=== PATIENT | female | born 1960 | race Caucasian/White ===

== ENCOUNTER 2022-11-17 16:57 | Inpatient (IN) | payer OTHER ==
[~2022-11-17] VITALS: Ht 162.6 cm; Wt 70.3 kg
[2022-11-17 17:03] VITALS: BP 147/60
--- NOTE | 2022-11-17 17:03 | NUR ---
CORAL ALS TO ER BED 5
[2022-11-17 17:41] LABS: BASOPHILS # (AUTO) 0.1 K/uL (0.00-0.22); BASOPHILS % (AUTO) 1.4 % (0.0-2.0); EOSINOPHILS # (AUTO) 0.1 K/uL (0-0.4); EOSINOPHILS % (AUTO) 2.7 % (0.0-4.0); HEMOGLOBIN 8.8 g/dL (12.0-16.0); LYMPHOCYTES # (AUTO) 0.6 K/uL (2.5-16.5); LYMPHOCYTES % (AUTO) 16.8 % (20.5-51.1); MEAN CORPUSCULAR HEMOGLOBIN 30 pg (27-31); MEAN CORPUSCULAR HGB CONC 34 g/dL (33-37); MEAN CORPUSCULAR VOLUME 87.6 fL (80-94); MONOCYTES # (AUTO) 0.4 K/uL (0.8-1.0); MONOCYTES % (AUTO) 10.3 % (1.7-9.3); NEUTROPHILS # (AUTO) 2.6 K/uL (1.8-7.7); NEUTROPHILS % (AUTO) 68.8 % (42.2-75.2); PLATELET COUNT (AUTO) 130 K/uL (140-450); RED BLOOD CELL COUNT(AUTO) 2.97 MIL/uL (4.20-5.40); RED CELL DISTRIBUTION WIDTH 17.4 % (11.6-13.7); WHITE BLOOD COUNT (AUTO) 3.8 K/uL (4.8-10.8)
[2022-11-17 17:59] LABS: ALBUMIN 3.6 g/dL (3.4-5.0); ANION GAP 9.5 (8-16); CARBON DIOXIDE 32.9 mmol/L (21-32); CREATININE 2.9 mg/dL (0.6-1.3); POTASSIUM 3.4 mmol/L (3.5-5.1); TOTAL BILIRUBIN 0.4 mg/dL (0.0-1.0)
[2022-11-17] MEDS ORDERED: DEXTROSE 50% 50 ML SYR IVP ONE (18:25)
--- NOTE | 2022-11-17 18:54 | NUR ---
FOOD PROVIDED- SANDWICH CRACKERS AND JUICE. [facility]
[2022-11-17] MEDS ORDERED: POTASSIUM (19:20)
[2022-11-17] MEDS ORDERED: IRON (19:20)
[2022-11-17] MEDS ORDERED: LEVOTHYROXINE (19:20)
[2022-11-17] MEDS ORDERED: INSULIN LISPRO (19:20)
[2022-11-17] MEDS ORDERED: INSULIN GLARGINE (19:20)
--- NOTE | 2022-11-17 19:26 | NUR ---
SBAR TO NELLY LOPEZ
--- NOTE | 2022-11-17 19:35 | NUR ---
Patient resting in bed, A/Ox4, chest rise and fall symmetrical, no c/o pain or s/s of distress, patient on monitor.
[2022-11-17] MEDS ORDERED: MORPHINE SULFATE 2 MG/ML SYR IVP PRN (20:05)
[2022-11-17] MEDS ORDERED: ONDANSETRON 4 MG/2 ML VIAL IVP PRN (20:05)
[2022-11-17] MEDS ORDERED: ACETAMINOPHEN 325 MG TAB PO PRN (20:05)
[2022-11-17] MEDS: NACL 0.9% 1,000 ML IV SCH (20:05)
[2022-11-17] MEDS ORDERED: LORazepam 2 MG/ML VIAL IVP PRN (20:05)
[2022-11-17] MEDS ORDERED: cefTRIAXone 1,000 MG VIAL ONE (20:17)
[2022-11-17 20:21] LABS: BILIRUBIN,URINE NEGATIVE (NEGATIVE); BLOOD, URINE 1+ (NEGATIVE); COLOR,URINE YELLOW (YELLOW); LEUKOCYTE ESTERASE ,URINE 3+ (NEGATIVE); NITRITE, URINE NEGATIVE (NEGATIVE); PH,URINE 7.5 (5.0-9.0); UGLUCOSE TRACE (NEGATIVE)
--- NOTE | 2022-11-17 20:30 | NUR ---
Patient resting in bed, A/Ox4, chest rise and fall symmetrical, no c/o pain or s/s of distress, patient on monitor.
[2022-11-17 20:33] LABS: APPEARANCE,URINE CLOUDY (CLEAR)
[2022-11-17 20:40] LABS: RBC,URINE 0-5 /HPF (0-5)
[2022-11-17 20:41] LABS: WBC,URINE 80-100 /HPF (0-5)
--- NOTE | 2022-11-17 22:24 | NUR ---
Patient resting in bed, A/Ox4, chest rise and fall symmetrical, no c/o pain or s/s of distress, patient on monitor.
--- NOTE | 2022-11-17 22:32 | NUR ---
PT BG checked. Current BG is 198.
--- NOTE | 2022-11-18 00:45 | NUR ---
Patient resting in bed, A/Ox4, chest rise and fall symmetrical, no c/o pain or s/s of distress, patient on monitor.
--- NOTE | 2022-11-18 02:30 | NUR ---
Patient resting in bed, A/Ox4, chest rise and fall symmetrical, no c/o pain or s/s of distress, patient on monitor.
--- NOTE | 2022-11-18 04:29 | NUR ---
Patient resting in bed, A/Ox4, chest rise and fall symmetrical, no c/o pain or s/s of distress, patient on monitor.
[2022-11-18] MEDS ORDERED: AZITHROMYCIN 500 MG INJ VIAL IV ONE (04:40)
[2022-11-18] MEDS: AZITHROMYCIN 500 MG in DEXTROSE 5% 250 ML IV SCH (04:46)
--- NOTE | 2022-11-18 06:49 | NUR ---
Patient resting in bed, A/Ox4, chest rise and fall symmetrical, no c/o pain or s/s of distress, patient on monitor.
--- NOTE | 2022-11-18 06:50 | NUR ---
Maryann segura in [facility] - 11/18/22 at 0740 by [id number] Physician paged for sliding scale orders. Waiting for return call and orders.
--- NOTE | 2022-11-18 06:55 | NUR ---
PT BG checked. Current BG is 186.
--- NOTE | 2022-11-18 06:57 | NUR ---
Physician paged for sliding scale orders. Waiting for return call and orders.
--- NOTE | 2022-11-18 07:26 | NUR ---
Change of shift report given to AM shift Nurse Keanu LOPEZ. AM shift Nurse Keanu RN verbalized understanding of report, no further questions.
[2022-11-18 07:47] LABS: BASOPHILS % (AUTO) 0.9 % (0.0-2.0); EOSINOPHILS # (AUTO) 0.1 K/uL (0-0.4); EOSINOPHILS % (AUTO) 2.2 % (0.0-4.0); HEMATOCRIT 25.1 % (36-48); HEMOGLOBIN 8.4 g/dL (12.0-16.0); LYMPHOCYTES # (AUTO) 0.6 K/uL (2.5-16.5); LYMPHOCYTES % (AUTO) 12.5 % (20.5-51.1); MEAN CORPUSCULAR HEMOGLOBIN 30 pg (27-31); MEAN CORPUSCULAR HGB CONC 34 g/dL (33-37); MEAN CORPUSCULAR VOLUME 88.5 fL (80-94); MONOCYTES # (AUTO) 0.3 K/uL (0.8-1.0); NEUTROPHILS # (AUTO) 3.5 K/uL (1.8-7.7); NEUTROPHILS % (AUTO) 77.4 % (42.2-75.2); PLATELET COUNT (AUTO) 119 K/uL (140-450); RED BLOOD CELL COUNT(AUTO) 2.84 MIL/uL (4.20-5.40); WHITE BLOOD COUNT (AUTO) 4.5 K/uL (4.8-10.8)
[2022-11-18] MEDS: NACL 0.9% 1,000 ML IV SCH ×2 (08:49→22:47)
--- NOTE | 2022-11-18 08:50 | NUR ---
Pt resting in bed. Pt has no complaints at this time. VSS.
[2022-11-18 09:35] LABS: ANION GAP 10.8 (8-16); CARBON DIOXIDE 29.2 mmol/L (21-32); CREATININE 3.2 mg/dL (0.6-1.3)
--- NOTE | 2022-11-18 14:05 | NUR ---
Pt provided with lunch tray.
--- NOTE | 2022-11-18 14:32 | NUR ---
Attempted to give report. No answer.
--- NOTE | 2022-11-18 15:03 | NUR ---
Report given to receiving RN. VSS. Pt aware and agreeable to admission. Pt transferred via gurney. Updated daughter on pt's status.
[2022-11-18] MEDS ORDERED: cefTRIAXone 1,000 MG VIAL ONE (18:23)
--- NOTE | 2022-11-18 18:49 | NUR ---
RECEIVED PT FROM ED FOR HYPOGLYCEMIA. A/OX4, SYRIAC SPEAKING ONLY. VSS, AFEBRILE. DENIES PAIN OR DISCOMFORT. SATING 97% ON 2L NC. SR ON TELE. TOLERATING DIABETIC DIET. BG 175, NOTIFIED FOR SLIDING SCALE ORDER, AWAITING RESPONSE. VOIDING. STAND BY ASSIST TO RESTROOM. SKIN INTACT. CURRENTLY GETTING HD. IVF AND IV ABX CONTINUED. ALL NEEDS MET, SAFETY AND COMFORT MEASURES MAINTAINED, CALL LIGHT WITHIN REACH.
--- NOTE | 2022-11-18 19:15 | NUR ---
RECEIVED PT FROM MORNING NURSE. PT IS AOX4, ZAMBIAN SPEAKING, AMBULATORY, ABLE TO VERBALIZE NEEDS AND ABLE TO FOLLOW COMMANDS. PT HEMODIALYSIS IS ON GOING. PT IS ON 2L NC AND ON CCHO DIET. PT HAS IV ON RIGHT FOREARM GAUGE 20 RUNNING WITH NS AT 75. PT HAS RIGHT UPPER CHEST MINNIE CATHETER. PT SKIN IS INTACT. NO COMPLAIN OF PAIN AT THIS TIME. NO S/S OF RESPIRATORY DISTRESS NOTED. ALL SAFETY MEASURES IMPLEMENTED. BED IN LOW POSITION, BED WHEELS ON LOCK AND CALL LIGHT WITHIN REACH.
[2022-11-18 20:00] VITALS: BP 196/76
--- NOTE | 2022-11-18 21:30 | NUR ---
NOTIFIED DR. BURGOS REGARDING PT BP OF 196/76. DR. BURGOS ORDER HYDRALAZINE 10MG EVERY 6 HRS WITH SYSTOLIC MORE THAN 160. ORDER WAS CARRIED OUT AND MADE.
[2022-11-18] MEDS: hydrALAZINE 20 MG/ML VIAL IVP PRN (22:08)
[2022-11-19] VITALS: BP 151/57
--- NOTE | 2022-11-19 | NUR ---
ASSISTED PT TO THE BATHROOM. NO COMPLAIN OF PAIN AND NO S/S OF RESPIRATORY DISTRESS NOTED. PT BP IS 151/57 WITH PULSE OF 94. ALL SAFETY MEASURES IMPLEMENTED. BED IN LOW POSITION, BED WHEELS ON LOCK AND CALL LIGHT WITHIN REACH.
--- NOTE | 2022-11-19 02:00 | NUR ---
PT IS ON SLEEP. CHEST RISE AND FALL SYMMETRICALLY NOTED. RESPIRATION IS EVEN AND UNLABORED. NO S/S OF RESPIRATORY DISTRESS NOTED. ALL SAFETY MEASURES IMPLEMENTED. BED IN LOW POSITION, BED WHEELS ON LOCK AND CALL LIGHT WITHIN REACH.
[2022-11-19 04:00] VITALS: BP 143/57
[2022-11-19] MEDS ORDERED: AZITHROMYCIN 500 MG INJ VIAL IV ONE (04:18)
[2022-11-19] MEDS: AZITHROMYCIN 500 MG in DEXTROSE 5% 250 ML IV SCH (04:32)
--- NOTE | 2022-11-19 04:32 | NUR ---
SCHEDULED AND PRESCRIBED MEDICATION WAS GIVEN TO PT PER MD ORDER. NO S/S OF RESPIRATORY DISTRESS NOTED. NO COMPLAIN OF PAIN. ALL SAFETY MEASURES IMPLEMENTED. BED IN LOW POSITION, BED WHEELS ON LOCK AND CALL LIGHT WITHIN REACH.
--- NOTE | 2022-11-19 07:18 | NUR ---
PT IS STABLE. ENDORSED PT TO MORNING SHIFT NURSE FOR CONTINUITY OF CARE.
[2022-11-19 08:00] VITALS: BP 170/81
--- NOTE | 2022-11-19 09:18 | NUR ---
PATIENT HAS BEEN SCREENED AND CATEGORIZED MODERATE NUTRITION RISK. PATIENT WILL BE SEEN WITHIN 3-5 DAYS OF ADMISSION. 11/17/22-11/22/[address]
[2022-11-19] MEDS: hydrALAZINE 20 MG/ML VIAL IVP PRN (09:29)
[2022-11-19] MEDS ORDERED: NIFEdipine 30 MG TABER PO SCH (10:05)
[2022-11-19 12:00] VITALS: BP 166/75
[2022-11-19] MEDS ORDERED: CEPH-588 PO (12:55)
[2022-11-19] MEDS ORDERED: AZIT250T3 PO (12:55)
--- NOTE | 2022-11-19 14:00 | NUR ---
REMOVAL OF INTACT 20 GAUGE INTRAVENOUS CATHETER TIP. PATIENT IDENTIFICATION BAND REMOVAL. RETURN OF PRESS OPERATOR AUTOMATIC TO FLORICULTURE PROFESSOR. PATIENT VERBALIZES UNDERSTANDING OF DISCHARGE TEACHING. GIVEN A COPY OF TEACHING AND MEDICATION RECONCILIATION.
--- NOTE | 2022-11-23 16:02 | NUR ---
MINNA BARNEY CALLED [facility] LOCATED AT [address] [phone] SPOKE WITH ALYCE WHO GAVE ME AN APPOINTMENT FOR 11/24/2022 AT 0900. SPOKE WITH PT TO INFORM HER OF THE ABOVE INFORMATION.
== END 2022-11-19 14:23 | disposition home or self-care (01) | DRG 137 ==
LOC: MED 16:57 → MTU 20:14 → OBSVTOIN 11-19 08:55
PROVIDERS: ADMIT Hospitalist; ATTEND Hospitalist
PROC: 5A1D70Z Performance of Urinary Filtration, Intermittent, Less than 6 Hours Per Day (ICD-10-PCS; principal; 2022-11-19)
DX: J15.8 Pneumonia due to other specified bacteria (principal); E11.649 Type 2 diabetes mellitus with hypoglycemia without coma; I12.0 Hypertensive chronic kidney disease with stage 5 chronic kidney disease or end stage renal disease; N18.6 End stage renal disease; D63.8 Anemia in other chronic diseases classified elsewhere; E11.22 Type 2 diabetes mellitus with diabetic chronic kidney disease; N39.0 Urinary tract infection, site not specified; Z20.822 Contact with and (suspected) exposure to COVID-19
CPT/HCPCS: G0378 ×28; 36415; 71045; 80048; 80053; 81001; 83735; 85025; 87040; 87086; 87186; 93005; J0360; J0456; J0696; J1644; J7060